=== PATIENT | female | born 1970 | race Caucasian/White ===

== ENCOUNTER 2020-08-26 08:21 | Emergency (ER) | payer BC ==
[2020-08-26 08:32] VITALS: BP_SYST 147
[2020-08-26 09:13] LABS: BASOPHILS % (AUTO) 0.4 % (0.0-2.0); EOSINOPHILS # (AUTO) 0.1 K/uL (0.0-0.4); EOSINOPHILS % (AUTO) 1.3 % (0.0-4.0); HEMATOCRIT 40.9 % (36-48); HEMOGLOBIN 14.1 g/dL (12.0-16.0); LYMPHOCYTES # (AUTO) 1.1 K/uL (1.0-5.5); LYMPHOCYTES % (AUTO) 24.7 % (20.5-51.5); MEAN CORPUSCULAR HEMOGLOBIN 31 pg (27-31); MEAN CORPUSCULAR HGB CONC 35 % (32-36); MEAN CORPUSCULAR VOLUME 90 fL (79.0-98.0); MONOCYTES # (AUTO) 0.4 K/uL (0.0-1.0); MONOCYTES % (AUTO) 8.8 % (1.7-9.3); NEUTROPHILS % (AUTO) 64.8 % (40.0-70.0); PLATELET COUNT (AUTO) 254 K/uL (130-430); RED BLOOD CELL COUNT(AUTO) 4.54 MIL/uL (4.2-6.2); RED CELL DISTRIBUTION WIDTH 12.6 % (9.0-15.0); WHITE BLOOD COUNT (AUTO) 4.6 K/uL (4.8-10.8)
[2020-08-26 09:25] LABS: CREATININE 0.88 mg/dL (0.55-1.30); POTASSIUM 3.3 mmol/L (3.5-5.1)
[2020-08-26 09:31] LABS: ALBUMIN 3.7 g/dL (3.4-4.8); TOTAL BILIRUBIN 0.6 mg/dL (0.0-1.0)
[2020-08-26] MEDS ORDERED: KETOROLAC TROMETHAMINE 60 MG/2 ML VIAL IM ONE (10:00)
[2020-08-26] MEDS ORDERED: NAPR-688 PO (10:32)
[2020-08-26 10:48] VITALS: BP_SYST 115
[2020-08-27] MEDS ORDERED: TRAM50TA2 PO (11:58)
== END 2020-08-26 10:48 | disposition home or self-care (01) ==
LOC: SED 08:21
DX: R07.89 Other chest pain (principal)
CPT/HCPCS: 36415; 71045; 80053; 82550; 83880; 84484; 85025; 85379; 93005; 93971; 96372; 99285; J1885

== ENCOUNTER 2020-08-27 09:56 | Emergency (ER) | payer BC ==
[~2020-08-27] VITALS: Ht 165.1 cm; Wt 69.9 kg
[2020-08-27 09:56] VITALS: BP_SYST 159
[~2020-08-27 09:56] MED LIST: NAPR-688 PO
[2020-08-27] MEDS ORDERED: ASPIRIN 81 MG TAB.CHEW PO ONE (10:15)
[2020-08-27] MEDS ORDERED: KETOROLAC TROMETHAMINE 30 MG VIAL IM ONE (10:15)
[2020-08-27 10:30] LABS: BASOPHILS % (AUTO) 0.7 % (0.0-2.0); EOSINOPHILS # (AUTO) 0.1 K/uL (0.0-0.4); HEMATOCRIT 40.3 % (36-48); HEMOGLOBIN 14.1 g/dL (12.0-16.0); LYMPHOCYTES # (AUTO) 1.6 K/uL (1.0-5.5); LYMPHOCYTES % (AUTO) 29.7 % (20.5-51.5); MEAN CORPUSCULAR HEMOGLOBIN 31 pg (27-31); MEAN CORPUSCULAR HGB CONC 35 % (32-36); MEAN CORPUSCULAR VOLUME 89 fL (79.0-98.0); MONOCYTES # (AUTO) 0.5 K/uL (0.0-1.0); MONOCYTES % (AUTO) 9.9 % (1.7-9.3); NEUTROPHILS # (AUTO) 3.2 K/uL (1.8-7.7); NEUTROPHILS % (AUTO) 58.7 % (40.0-70.0); PLATELET COUNT (AUTO) 274 K/uL (130-430); RED BLOOD CELL COUNT(AUTO) 4.51 MIL/uL (4.2-6.2); RED CELL DISTRIBUTION WIDTH 12.1 % (9.0-15.0); WHITE BLOOD COUNT (AUTO) 5.4 K/uL (4.8-10.8)
[2020-08-27 10:42] LABS: CALCIUM 8.8 mg/dL (8.4-11.0); CREATININE 0.76 mg/dL (0.55-1.30)
[2020-08-27 10:49] LABS: TOTAL BILIRUBIN 0.6 mg/dL (0.0-1.0)
[2020-08-27] MEDS ORDERED: TRAM50TA2 PO (11:58)
[2020-08-27 12:14] VITALS: BP_SYST 121
== END 2020-08-27 12:15 | disposition home or self-care (01) ==
LOC: SED 09:56
DX: R07.89 Other chest pain (principal)
CPT/HCPCS: 36415; 71045; 80053; 82550; 83880; 84484; 85025; 93005; 96372; 99285; J1885

== ENCOUNTER 2021-02-04 12:23 | Emergency (ER) | payer BC, SELFPAY ==
[~2021-02-04] VITALS: Ht 165.1 cm; Wt 72.6 kg
[~2021-02-04 12:23] MED LIST changes: +TRAM50TA2 PO
[2021-02-04 12:35] VITALS: BP_SYST 128
[2021-02-04] MEDS ORDERED: NAPR-1172 PO (14:01)
[2021-02-04] MEDS ORDERED: AZIT-62 PO (14:01)
[2021-02-04] MEDS ORDERED: ROBAC PO (14:01)
== END 2021-02-04 14:20 | disposition home or self-care (01) ==
LOC: SED 12:23
DX: U07.1 COVID-19 (principal); J20.9 Acute bronchitis, unspecified; Z79.899 Other long term (current) drug therapy
CPT/HCPCS: 71045; 99283

== ENCOUNTER 2022-08-07 21:22 | Emergency (ER) | payer BC ==
[~2022-08-07] VITALS: Ht 165.1 cm; Wt 76.2 kg
[~2022-08-07 21:22] MED LIST changes: +AZIT-93 PO; +NAPR-1172 PO; +ROBAC PO
[2022-08-07 21:44] VITALS: BP_SYST 138
--- NOTE | 2022-08-07 23:17 | NUR ---
Patient to ER bed 03 to gown for evaluation. Side rails up. Report given to mayte purcell
--- NOTE | 2022-08-07 23:25 | NUR ---
AT THE BED SIDE WITH PT
--- NOTE | 2022-08-07 23:34 | NUR ---
PT IS HERE BECUASE OF THE RIGHT INGUANAL PAIN 08/29. PT ALERTT AND ORIENT X4. PT IS AMBULATORY
[2022-08-07] MEDS ORDERED: KETOROLAC TROMETHAMINE 30 MG VIAL IVP ONE (23:45)
[2022-08-07] MEDS ORDERED: NACL 0.9% 1,000 ML IV ONE (23:45)
[2022-08-08 01:01] LABS: BASOPHILS % (AUTO) 0.3 % (0.0-2.0); EOSINOPHILS # (AUTO) 0.1 K/uL (0.0-0.4); EOSINOPHILS % (AUTO) 1.1 % (0.0-4.0); HEMATOCRIT 42.5 % (36-48); HEMOGLOBIN 14.6 g/dL (12.0-16.0); LYMPHOCYTES # (AUTO) 2.3 K/uL (1.0-5.5); LYMPHOCYTES % (AUTO) 29.3 % (20.5-51.5); MEAN CORPUSCULAR HEMOGLOBIN 32 pg (27-31); MEAN CORPUSCULAR HGB CONC 35 % (32-36); MEAN CORPUSCULAR VOLUME 91 fL (79.0-98.0); MONOCYTES # (AUTO) 0.8 K/uL (0.0-1.0); MONOCYTES % (AUTO) 10.1 % (1.7-9.3); NEUTROPHILS # (AUTO) 4.6 K/uL (1.8-7.7); NEUTROPHILS % (AUTO) 59.2 % (40.0-70.0); PLATELET COUNT (AUTO) 264 K/uL (130-430); RED BLOOD CELL COUNT(AUTO) 4.65 MIL/uL (4.2-6.2); RED CELL DISTRIBUTION WIDTH 12.8 % (9.0-15.0); WHITE BLOOD COUNT (AUTO) 7.8 K/uL (4.8-10.8)
[2022-08-08 01:10] LABS: BILIRUBIN,URINE NEGATIVE (NEGATIVE); CLARITY/URINE SL CLOUDY (CLEAR); COLOR,URINE YELLOW (YELLOW); GLUCOSE,URINE NEGATIVE (NEGATIVE); KETONES,URINE NEGATIVE (NEGATIVE); LEUKOCYTE ESTERASE ,URINE 2+ (NEGATIVE); NITRITE, URINE NEGATIVE (NEGATIVE); PROTEIN URINE NEGATIVE (NEGATIVE); UROBILINOGEN,URINE 0.2 (0.2-1.0)
[2022-08-08 01:19] LABS: BLOOD, URINE TRACE (NEGATIVE)
[2022-08-08 01:22] LABS: CALCIUM 9.3 mg/dL (8.4-11.0); CREATININE 0.87 mg/dL (0.55-1.30); TOTAL BILIRUBIN 0.5 mg/dL (0.0-1.0)
[2022-08-08 01:24] LABS: BACTERIA,URINE MANY /HPF (None Seen); WBC,URINE >100 /HPF (0-3)
[2022-08-08] MEDS ORDERED: cefTRIAXone 1 GM IVPB PREMIX 50 ML IV ONE (01:45)
--- NOTE | 2022-08-08 02:25 | NUR ---
PT MEDICATED PER MD ORDER, SEE eMAR.
[2022-08-08] MEDS ORDERED: PHEN-890 PO (03:17)
[2022-08-08] MEDS ORDERED: CIPR500T5 PO (03:17)
[2022-08-08 03:35] VITALS: BP_SYST 138
--- NOTE | 2022-08-08 03:36 | NUR ---
Patient given written and verbal discharge instructions and verbalizes understanding. ER MD discussed with patient the results and treatment provided. Patient in stable condition. ID arm band removed. IV catheter removed intact and dressing applied, no active bleeding. Rx of antibiotic given. Patient educated on pain management and to follow up with PMD. Pain Scale 0/10. Opportunity for questions provided and answered. Medication side effect fact sheet provided.
== END 2022-08-08 03:35 | disposition home or self-care (01) ==
LOC: SED 21:22
DX: N39.0 Urinary tract infection, site not specified (principal); R10.31 Right lower quadrant pain; Z79.899 Other long term (current) drug therapy
CPT/HCPCS: 99285; 80053; 81000; 85025; 87040; 87086; 36415; 83605; 74176; 96365; 96361; 96375; 76376; J0696; J1885; J7030